=== PATIENT | female | born 1960 | race African-American/Black ===

== ENCOUNTER → 2017-08-12 | Outpatient (CLI) | payer MEDICARE, MEDICAID ==
[~2017-08-12] MED LIST: CONTRAST GIVEN MC; IOHEXOL 240 MG/ML 50ML VIAL. PO; IOHEXOL 300 MG/ML 100ML VIAL. IV
[2017-08-12] MEDS: IOHEXOL 300 MG/ML 100ML VIAL. IV (10:45)
[2017-08-12 10:50] LABS: GFR 56.4
[2017-08-12 10:50] LABS: CREATININE 1.2 mg/dL (0.6-1.0)
== END | disposition home or self-care (01) ==
LOC: CT 10:44
DX: K43.9 Ventral hernia without obstruction or gangrene (principal); K42.9 Umbilical hernia without obstruction or gangrene; K57.30 Diverticulosis of large intestine without perforation or abscess without bleeding; R91.8 Other nonspecific abnormal finding of lung field; J45.909 Unspecified asthma, uncomplicated; E11.9 Type 2 diabetes mellitus without complications; Z87.891 Personal history of nicotine dependence
CPT/HCPCS: 36415; 74177; 82565; Q9966; Q9967

== ENCOUNTER → 2017-08-18 | Outpatient (CLI) | payer MEDICARE, MEDICAID ==
[2017-08-18 16:17] LABS: ADD MAN DIFF? NO
[2017-08-18 16:20] LABS: BASO % 1 % (0-3); EOS # 0.1 x10^3/uL (0.0-0.7); EOS % 2 % (0-3); HEMATOCRIT 39.8 % (36.0-47.0); HEMOGLOBIN 13.4 g/dL (12.0-15.5); LYMPH # 1.9 x10^3/uL (1.0-4.8); LYMPH % 25 % (24-48); MEAN CORPUSCULAR HEMOGLOBIN 31 pg (25-35); MEAN CORPUSCULAR HGB CONC 34 g/dL (31-37); MEAN CORPUSCULAR VOLUME 91 fL (79-100); MONO # 0.4 x10^3/uL (0.0-1.1); MONO % 5 % (0-9); NEUT # 5.2 x10^3uL (1.8-7.7); NEUT % 68 % (31-73); PLATELET COUNT 202 x10^3/uL (140-400); RED BLOOD COUNT 4.36 x10^6/uL (3.50-5.40); RED CELL DISTRIBUTION WIDTH 13.6 % (11.5-14.5); WHITE BLOOD COUNT 7.7 x10^3/uL (4.0-11.0)
[2017-08-18 16:29] LABS: PROTHROMBIN TIME PATIENT 12.3 SEC (11.7-14.0)
[2017-08-18 16:40] LABS: ALBUMIN 3.5 g/dL (3.4-5.0); ALBUMIN/GLOBULIN RATIO 0.8 (1.0-1.7); ALK PHOS 125 U/L (46-116); ALT (SGPT) 22 U/L (14-59); ANION GAP 10 (6-14); AST (SGOT) 10 U/L (15-37); BLOOD UREA NITROGEN 19 mg/dL (7-20); BUN/CREATININE RATIO 16 (6-20); CALCIUM 9.6 mg/dL (8.5-10.1); CARBON DIOXIDE 29 mmol/L (21-32); CHLORIDE 100 mmol/L (98-107); CREATININE 1.2 mg/dL (0.6-1.0); GFR 56.4; GLUCOSE 306 mg/dL (70-99); POTASSIUM 3.9 mmol/L (3.5-5.1); SODIUM 139 mmol/L (136-145); TOTAL BILIRUBIN 0.3 mg/dL (0.2-1.0); TOTAL PROTEIN 8.1 g/dL (6.4-8.2)
== END | disposition home or self-care (01) ==
LOC: SURGPAT 14:32
DX: Z01.818 Encounter for other preprocedural examination (principal); R79.89 Other specified abnormal findings of blood chemistry; R79.1 Abnormal coagulation profile
CPT/HCPCS: 36415; 80053; 85025; 85610

== ENCOUNTER 2017-08-23 10:42 | Observation (INO) | payer MEDICARE, MEDICAID ==
[~2017-08-23 10:42] MED LIST changes: -CONTRAST GIVEN MC; -IOHEXOL 240 MG/ML 50ML VIAL. PO; -IOHEXOL 300 MG/ML 100ML VIAL. IV; +LIDOCAINE 1% PF 2 ML VIAL. ID; +MORPHINE SULFATE 4 MG/ML DISP.SYRIN. IV; +ONDANSETRON PF 4 MG/2 ML VIAL. IV; +PROCHLORPERAZINE 10 MG/2 ML VIAL. IV; +fentaNYL PF VIAL 100 MCG/2 ML VIAL IV
[2017-08-23 11:37] LABS: POC GLUCOSE 283 mg/dL (70-99)
[2017-08-23] MEDS ORDERED: DESFLURANE > 120 MINUTES IH (11:59)
[2017-08-23] MEDS ORDERED: ROCURONIUM 100 MG/10 ML VIAL. (11:59)
[2017-08-23] MEDS ORDERED: fentaNYL PF VIAL 250 MCG/5 ML VIAL (11:59)
[2017-08-23] MEDS ORDERED: MIDAZOLAM HCL/PF 2 MG/2 ML VIAL. (11:59)
[2017-08-23] MEDS ORDERED: ONDANSETRON PF 4 MG/2 ML VIAL. (11:59)
[2017-08-23] MEDS ORDERED: PROPOFOL 20 ML IV (11:59)
[2017-08-23] MEDS ORDERED: DEXAMETHASONE SOD PHOS 20 MG/5 ML VIAL. (11:59)
[2017-08-23] MEDS: INSULIN ASPART 100 UNIT/ML 10ML VIAL. SQ ×2 (12:18→16:42)
[2017-08-23] MEDS ORDERED: BUPIVACAINE 0.5% 50 ML VIAL. (13:25)
[2017-08-23] MEDS ORDERED: ALBUTEROL SULFATE 2.5 MG/3 ML NEBU. (14:01)
[2017-08-23] MEDS ORDERED: PHENYLEPHRINE in 0.9% NACL PF 1 MG/10 ML SYRINGE. IV (14:13)
[2017-08-23 14:18] LABS: POC GLUCOSE 230 mg/dL (70-99)
[2017-08-23] MEDS ORDERED: REMIFENTANIL 1 MG VIAL. IV (14:30)
[2017-08-23] MEDS ORDERED: GLYCOPYRROLATE 1 MG/5 ML VIAL. (15:00)
[2017-08-23] MEDS ORDERED: NEOSTIGMINE METHYLSULFATE 5 MG/5 ML SYRINGE. (15:00)
[2017-08-23] MEDS: BUPIVACAINE-EPI 0.25%-1:200000 50 ML VIAL. (15:32)
[2017-08-23] MEDS ORDERED: LIDOCAINE 2% PF Vial for OR 5 ML VIAL. (15:43)
[2017-08-23] MEDS: IV RINGERS,LACTATED 1000ML 1,000 ML IV (16:12)
[2017-08-23] MEDS: IPRATRPIUM/ALBUTEROL 0.5/2.5MG 3 ML NEBU. NEB (16:42)
[2017-08-23 17:13] LABS: POC GLUCOSE 253 mg/dL (70-99)
[2017-08-23] MEDS: fentaNYL PF VIAL 100 MCG/2 ML VIAL IV ×2 (17:20→18:09)
[2017-08-23] MEDS ORDERED: IV 1/2 NORMAL SALINE 1,000 ML IV (17:30)
[2017-08-23] MEDS ORDERED: METOCLOPRAMIDE HCL 10 MG/2 ML VIAL. IV (17:30)
[2017-08-23] MEDS ORDERED: DEXTROSE 50% 25 GM / 50ML DISP.SYRIN. IV ×2 (19:15→22:15)
[2017-08-23] MEDS: oxyCODONE/APAP 7.5/325 1 TAB TABLET PO ×2 (19:32→22:49)
[2017-08-23] MEDS: IV 1/2 NORMAL SALINE 1,000 ML IV (19:35)
[2017-08-23 19:52] LABS: BASO % 0 % (0-3); EOS % 0 % (0-3); HEMATOCRIT 39.3 % (36.0-47.0); HEMOGLOBIN 13.2 g/dL (12.0-15.5); LYMPH # 0.9 x10^3/uL (1.0-4.8); LYMPH % 8 % (24-48); MEAN CORPUSCULAR HEMOGLOBIN 31 pg (25-35); MEAN CORPUSCULAR HGB CONC 34 g/dL (31-37); MEAN CORPUSCULAR VOLUME 92 fL (79-100); MONO # 0.2 x10^3/uL (0.0-1.1); MONO % 2 % (0-9); NEUT # 9.8 x10^3uL (1.8-7.7); NEUT % 90 % (31-73); PLATELET COUNT 183 x10^3/uL (140-400); RED BLOOD COUNT 4.28 x10^6/uL (3.50-5.40); RED CELL DISTRIBUTION WIDTH 13.7 % (11.5-14.5); WHITE BLOOD COUNT 10.9 x10^3/uL (4.0-11.0)
[2017-08-23 19:53] LABS: ADD MAN DIFF? YES
[2017-08-23 20:09] LABS: ALBUMIN 3.3 g/dL (3.4-5.0); ALBUMIN/GLOBULIN RATIO 0.7 (1.0-1.7); ALK PHOS 124 U/L (46-116); ALT (SGPT) 130 U/L (14-59); ANION GAP 9 (6-14); AST (SGOT) 149 U/L (15-37); BLOOD UREA NITROGEN 23 mg/dL (7-20); BUN/CREATININE RATIO 18 (6-20); CARBON DIOXIDE 29 mmol/L (21-32); CHLORIDE 99 mmol/L (98-107); CREATININE 1.3 mg/dL (0.6-1.0); GFR 51.5; GLUCOSE 315 mg/dL (70-99); POTASSIUM 4.4 mmol/L (3.5-5.1); SODIUM 137 mmol/L (136-145); TOTAL BILIRUBIN 0.3 mg/dL (0.2-1.0); TOTAL PROTEIN 7.9 g/dL (6.4-8.2)
[2017-08-23 20:31] LABS: % BANDS 3 % (0-9); % LYMPHS 12 % (24-48); % MONOS 1 % (0-10); % SEGS 84 % (35-66)
[2017-08-23 20:32] LABS: PLT ESTIMATE ADEQUATE (ADEQUATE)
[2017-08-23 20:34] LABS: POC GLUCOSE 328 mg/dL (70-99)
[2017-08-23] MEDS: GABAPENTIN 400 MG CAPSULE. PO (21:00)
[2017-08-23] MEDS: SIMVASTATIN 40 MG TABLET. PO (22:23)
[2017-08-23] MEDS: INSULIN LISPRO 300 UNITS/3 ML INSULN.PEN. SQ (22:49)
[2017-08-24] MEDS: PANTOPRAZOLE 40 MG TABLET.DR. PO (06:35)
[2017-08-24] MEDS: oxyCODONE/APAP 7.5/325 1 TAB TABLET PO (06:36)
[2017-08-24 07:57] LABS: POC GLUCOSE 346 mg/dL (70-99)
[2017-08-24] MEDS ORDERED: INSULIN LISPRO 300 UNITS/3 ML INSULN.PEN. SQ ×2 (08:00)
[2017-08-24] MEDS: LOSARTAN POTASSIUM 50 MG TABLET. PO (08:16)
[2017-08-24] MEDS: metFORMIN 500 MG TABLET PO (08:16)
[2017-08-24] MEDS: CHOLECALCIFEROL (VITAMIN D3) 5,000 UNIT CAPSULE PO (08:16)
[2017-08-24] MEDS: hydroCHLOROthiazide 12.5 MG CAPSULE PO (08:16)
[2017-08-24] MEDS: GABAPENTIN 400 MG CAPSULE. PO (08:22)
[2017-08-24] MEDS: INSULIN LISPRO 300 UNITS/3 ML INSULN.PEN. SQ (08:22)
[2017-08-24] MEDS ORDERED: NON FORMULARY ITEM SQ ×2 (09:00)
[2017-08-24] MEDS ORDERED: IV 1/2 NORMAL SALINE 1,000 ML IV (09:00)
[2017-08-24] MEDS ORDERED: INSULIN ASPART 100 UNIT/ML 10ML VIAL. SQ (11:30)
== END 2017-08-24 11:00 | disposition home or self-care (01) ==
LOC: SURG 10:42 → 4 NORTH 17:15
PROVIDERS: Specialist
DX: K43.6 Other and unspecified ventral hernia with obstruction, without gangrene (principal); K42.0 Umbilical hernia with obstruction, without gangrene; E11.22 Type 2 diabetes mellitus with diabetic chronic kidney disease; E11.40 Type 2 diabetes mellitus with diabetic neuropathy, unspecified; E11.65 Type 2 diabetes mellitus with hyperglycemia; E55.9 Vitamin D deficiency, unspecified; E78.5 Hyperlipidemia, unspecified; F12.90 Cannabis use, unspecified, uncomplicated; G47.33 Obstructive sleep apnea (adult) (pediatric); I12.9 Hypertensive chronic kidney disease with stage 1 through stage 4 chronic kidney disease, or unspecified chronic kidney disease; J44.9 Chronic obstructive pulmonary disease, unspecified; N18.2 Chronic kidney disease, stage 2 (mild); Z81.8 Family history of other mental and behavioral disorders; Z87.891 Personal history of nicotine dependence; Z90.49 Acquired absence of other specified parts of digestive tract
CPT/HCPCS: 36415; 71045; 80053; 82962; 85007; 85025; 94640; 94660; 96372; A7015; C1781; G0378; G0379; J0690; J1100; J1815; J2250; J2370; J2405; J2704; J2710; J3010; J3490; J7120; J7613; J7620